=== PATIENT | female | born 1995 ===

== ENCOUNTER 2018-10-12 20:49 | Emergency (ER) | payer SELFPAY ==
[2018-10-12 21:26] VITALS: BP 127/75; RESP 16; O2SAT 97
[2018-10-12] MEDS ORDERED: Lactated Ringer's 1,000 ML IV STA (21:57)
--- NOTE | 2018-10-12 22:49 | ED PDOC ---
HPI: Female Pain Time Seen by Provider: 10/12/18 21:45 Chief Complaint (Nursing): Female Genitourinary Chief Complaint (Provider): Pelvic pain History Per: Patient Onset/Duration Of Symptoms: Other (1 week) Current Symptoms Are (Timing): Still Present Quality Of Discomfort: Cramping, "Pain", Other (radiating bilaterally to lower back) Associated Symptoms: Fever, Chills, Nausea, Vomiting, Diarrhea, Loss Of Appetite, Back Pain, Urinary Symptoms. denies: Constipation Additional Complaint(s): Reports amenorrhea since apr 2018 but also has very irregular periods. Took test at home twice and reports that they were positive. Has vaginal discharge white for 1 week but increased amounts over the last 2 days. Seen in [facility] for same symptoms. PMD None Past Medical History Reviewed: Historical Data, Nursing Documentation, Vital Signs Vital Signs: Last Vital Signs Temp 100.8 F H 10/12/18 21:22 Pulse 104 H 10/12/18 21:22 Resp 16 10/12/18 21:22 BP 127/75 10/12/18 21:22 Pulse Ox 97 10/12/18 21:22 Primary Care Provider: Jorge Mayfield F - Medical History PMH: No Chronic Diseases - Surgical History Surgical History: No Surg Hx - Family History Family History: States: Unknown Family Hx - Social History Current smoker - smoking cessation education provided: Yes Drugs: Cannabis - Home Medications Home Medications: Ambulatory Orders Medication Instructions Recorded Doxycycline Hyclate 100 mg PO BID #28 capsule 10/13/18 - Allergies Allergies/Adverse Reactions: Allergies Allergy/AdvReac Type Severity Reaction Status Date / Time No Known Allergies Allergy Verified 10/12/18 21:22 Review of Systems ROS Statement: Except As Marked, All Systems Reviewed And Found Negative (and as per HPI) Constitutional: Positive for: Fever, Chills, Weakness, Malaise Gastrointestinal: Positive for: Nausea, Vomiting, Abdominal Pain, Diarrhea. Negative for: Constipation, Melena, Hematochezia, Hematemesis Genitourinary Female: Positive for: Dysuria, Vaginal Discharge, Pelvic Pain. Negative for: Frequency, Hematuria, Vaginal Bleeding Musculoskeletal: Positive for: Back Pain Physical Exam - Reviewed Nursing Documentation Reviewed: Yes Vital Signs Reviewed: Yes - Physical Exam Appears: Positive for: In Acute Distress (painful distress fever) Head Exam: Positive for: ATRAUMATIC, NORMOCEPHALIC Skin: Positive for: Warm, Dry Eye Exam: Positive for: EOMI, PERRL, Conjunctival injection ENT: Negative for: Pharyngeal Erythema, Tonsillar Exudate Neck: Positive for: Painless ROM, Supple Cardiovascular/Chest: Positive for: Tachycardia (regular rhythm). Negative for: Murmur Respiratory: Positive for: Normal Breath Sounds. Negative for: Respiratory Distress Gastrointestinal/Abdominal: Positive for: Bowel Sounds, Soft, Tenderness. Negative for: Mass, Distended, Guarding, Rebound Pelvic Exam: Positive for: External Exam Normal, No Cerv. Motion Tender, Discharge (white thick milky colored), Tender Adnexa, Tender Uterus, Other (mild erythema cervix). Negative for: Active Bleeding Back: Negative for: L CVA Tenderness, R CVA Tenderness, Decreased ROM Extremity: Positive for: Normal ROM. Negative for: Deformity Lymphatic: Negative for: Adenopathy Neurological/Psych: Positive for: Awake, Alert. Negative for: Motor/Sensory Deficits - Laboratory Results Result Diagrams: 10/12/18 22:25 10/12/18 22:25 - ECG O2 Sat by Pulse Oximetry: 97 Medical Decision Making Medical Decision Makin Patient to be signed out to Dr. Whittington pending ultrasound, reassessment. Disposition - Clinical Impression Clinical Impression: PID (acute pelvic inflammatory disease) - Patient ED Disposition Is Patient to be Admitted: Transfer of Care - Disposition Referrals: [facility] [Outside] [facility] [Outside] Disposition: Transfer of Care Disposition Time: 00:11 Condition: STABLE Additional Instructions: FOLLOW UP WITH MICROSTRATEGY BI DEVELOPER IN 1-2 DAYS RETURN TO THE ED WITH ANY WORSENING OR CONCERNING SYMPTOMS Prescriptions: Doxycycline Hyclate 100 mg PO BID #28 capsule Instructions: Pelvic Inflammatory Disease (DC) Forms: [employer] (Azerbaijani) Patient Signed Over To: Quan Whittington
[2018-10-12 23:01] LABS: BASO # 0.1 K/uL (0.0-0.2); BASO % 0.6 % (0.0-2.0); EOS # 0.1 K/uL (0.0-0.7); EOS % 0.7 % (0.0-4.0); HEMOGLOBIN 14.3 g/dL (12.0-16.0); LYMPH # 3.6 K/uL (1.0-4.3); LYMPH % 23.2 % (20.0-40.0); MEAN CELL VOLUME 86.7 fl (81.0-99.0); MEAN CORPUSCULAR HEMOGLOBIN 29.2 pg (27.0-31.0); MEAN CORPUSCULAR HGB CONC 33.7 g/dL (33.0-37.0); MEAN PLATELET VOLUME 9.1 fl (7.2-11.7); MONO % 6.2 % (0.0-10.0); NEUT # 10.8 K/uL (1.8-7.0); NEUT % 69.3 % (50.0-75.0); RBC 4.88 Mil/uL (3.80-5.20); RED CELL DISTRIBUTION WIDTH 13.1 % (11.5-14.5); WHITE BLOOD COUNT 15.5 K/uL (4.8-10.8)
[2018-10-12 23:08] LABS: SQUAMOUS EPITHIAL 15 /hpf (0-5); URINE BACTERIA RARE (<OCC); URINE BILIRUBIN NEGATIVE (NEGATIVE); URINE BLOOD NEGATIVE (NEGATIVE); URINE CLARITY CLOUDY (Clear); URINE COLOR YELLOW (YELLOW); URINE GLUCOSE (UA) NEG (NEGATIVE); URINE LEUKOCYTE ESTERASE LARGE Leu/uL (Negative); URINE PROTEIN 30 mg/dL (NEGATIVE); URINE UROBILINOGEN 0.2-1.0 mg/dL (0.2-1.0)
[2018-10-12 23:11] LABS: ALB/GLOB RATIO 1.2 (1.0-2.1); ALBUMIN 4.2 g/dL (3.5-5.0); ALT/SGPT 24 U/L (9-52); AST/SGOT 25 U/L (14-36); BLOOD UREA NITROGEN 7 mg/dl (7-17); CALCIUM 9.2 mg/dL (8.4-10.2); GFR NON-AFRICAN AMERICAN > 60
[2018-10-12 23:37] LABS: BARBITURATES, UR NEGATIVE (NEGATIVE); BENZODIAZEPINES, UR NEGATIVE (NEGATIVE); OPIATES, UR NEGATIVE (NEGATIVE); PHENCYCLIDINE, UR NEGATIVE (NEGATIVE)
--- NOTE | 2018-10-13 00:14 | ED PDOC ---
- Laboratory Results Result Diagrams: 10/12/18 22:25 10/12/18 22:25 Lab Results: Total Bilirubin 0.3 mg/dl (0.2-1.3) 10/12/18 22: AST 25 U/L (14-36) 10/12/18 22: ALT 24 U/L (9-52) 10/12/18 22:25 Alkaline Phosphatase 124 U/L (38-126) 10/12/18 22: Total Protein 7.7 G/DL (6.3-8.2) 10/12/18 22: Albumin 4.2 g/dL (3.5-5.0) 10/12/18: Globulin 3.5 gm/dL (2.2-3.9) 10/12/18: Albumin/Globulin Ratio 1.2 (1.0-2.1) 10/12/18 22: Urine Color Yellow (YELLOW) 10/12/18: Urine Clarity Cloudy (Clear) 10/12/18: Urine pH 6.0 (5.0-8.0) 10/12/18: Ur Specific [place] 1.014 (1.003-1.030) 10/12/18: Urine Protein 30 mg/dL (NEGATIVE) 10/12/18: Urine Glucose (UA) Neg mg/dL (NEGATIVE) 10/12/18: Urine Ketones Negative mg/dL (NEGATIVE) 10/12/18 22: Urine Blood Negative (NEGATIVE) 10/12/18: Urine Nitrate Negative (NEGATIVE) 10/12/18: Urine Bilirubin Negative (NEGATIVE) 10/12/18: Urine Urobilinogen 0.2-1.0 mg/dL (0.2-1.0) 10/12/18 22: Ur Leukocyte Esterase Large Zaria/uL (Negative) 10/12/18 22: Urine RBC (Auto) 3 /hpf (0-3) 10/12/18 22: Urine Microscopic WBC 22 /hpf (0-5) H 10/12/18 22:25 Ur Squamous Epith Cells 15 /hpf (0-5) H 10/12/18 22:25 Urine Bacteria Rare (<OCC) 10/12/18: Beta HCG, Quant < 2.39 mIU/mL 10/12/18 22:25 - ECG O2 Sat by Pulse Oximetry: 97 (RA) Pulse Ox Interpretation: Normal Medical Decision Making Medical Decision Makin Patient signed out to me by Dr. Bates pending ultrasound. If US negative, patient to be treated for PID. 0113 US Transvaginal Findings: The uterus measures 9.6x3.2x6.2 cm. Endometrium is normal in thickness measuring 5.9 mm. Anteverted uterus. Normal cervical length measuring 2.8 cm. Normal ovaries. Normal bilateral ovarian flow without evidence of ovarian torsion. No free pelvic fluid is noted. Impression: Unremarkable exam. 0120 when went into pt room to give results pt not there called for pt. no answer in the ER again at around 145 am Patient apparantly left ER prior to Rocephin IM administration, and prior to receiving discharge papers w prescriptions. Scribe Attestation: Documented by Melyssa Howard acting as a scribe for Quan Whittington MD. Provider Scribe Attestation: All medical record entries made by the Scribe were at my direction and personally dictated by me. I have reviewed the chart and agree that the record accurately reflects my personal performance of the history, physical exam, medical decision making, and the department course for this patient. I have also personally directed, reviewed, and agree with the discharge instructions and disposition. Disposition Counseled Patient/Family Regarding: Studies Performed, Diagnosis, Need For Followup - Clinical Impression Clinical Impression: PID (acute pelvic inflammatory disease) - POA Present On Arrival: None - Disposition Referrals: [facility] [Outside] [facility] [Outside] Disposition: Routine/Home Disposition Time: 01:23 Condition: IMPROVED Additional Instructions: FOLLOW UP WITH DRUG CLERK IN 1-2 DAYS RETURN TO THE ED WITH ANY WORSENING OR CONCERNING SYMPTOMS Prescriptions: Doxycycline Hyclate 100 mg PO BID #28 capsule Instructions: Pelvic Inflammatory Disease (DC) Forms: [employer] (Maori)
[2018-10-13] MEDS ORDERED: cefTRIAXone (Rocephin) 250 mg Inj IM ONE (01:23)
[2018-10-13 03:10] VITALS: PULSE 88; TEMP 98.8
--- NOTE | 2018-10-13 11:54 | US ---
Date of service: 10/12/2018 HISTORY: Pelvic and low back pain. Negative test (concurrent with this examination). LMP 04/02/2018. Irregular cycles. COMPARISON: None available. TECHNIQUE: Transvaginal only. Real -time technique with 2D, duplex and color Doppler FINDINGS: UTERUS: Measures 3.2 x 6.2 x 9.6 cm. Normal in size and appearance. No fibroid or other mass lesion seen. ENDOMETRIUM: Measures 5.1 mm in diameter. No ultrasound findings to suggest gestational sac, fluid, debris, mass or polyp or other pathologic process within the endometrium. CERVIX: No cervical abnormality identified. Closed cervix 2.73 cm. Incidental finding: Nabothian cysts the largest measures less than 1 cm. RIGHT OVARY: Measures 2.3 x 2.6 x 5 cm. No solid mass. Normal flow. LEFT OVARY: Measures 2 x 2.4 x 3.8 cm. No solid mass. Normal flow. Multiple subcentimeter follicles. FREE FLUID: No significant free fluid noted. OTHER FINDINGS: None. IMPRESSION: No significant or acute findings to account for/ related to the clinical presentation. Additional benign and/or incidental findings described above. Concordant findings (preliminary report) provided by [facility].
== END 2018-10-13 00:45 | disposition home or self-care (01) ==
LOC: H.ER 20:49
DX: N73.9 Female pelvic inflammatory disease, unspecified (principal)
CPT/HCPCS: 76830; 80053; 81003; 81025; 83605; 84702; 85025; 86850; 86900; 87040; 87070; 87086; 87430; 87804; 96360; 99284; G0480; J7120